=== PATIENT | male | born 1930 | race Caucasian/White ===

== ENCOUNTER 2016-06-11 16:15 | Emergency (ER) | payer OTHER, MEDICARE ==
[~2016-06-11] VITALS: Ht 190.5 cm; Wt 108.9 kg
[~2016-06-11 16:15] MED LIST: <VITAMIN> A + D1 APP TOP; ASPIR 8181 MG PO; GLUCOPHAGE XR500 MG PO; HYDRODIURIL 112.5 M1 PO; LISINOPRIL10 MG PO; METOPROLOL SUCC50 M1 PO; NOVOLOG FLEX100 U/ML SC; PRINIVIL10 MG PO; Robitussin PO; SIMVASTATIN10 MG PO; Theragran Vitamins PO; VITAMIN C250 M1 PO; XARELTO10 MG PO; ZINC SULFATE 2220 MG PO
--- NOTE | 2016-06-11 16:21 | ED GENERAL ADULT ---
History of Present Illness General Chief Complaint: Dyspnea (COPD, CHF, Other) Stated Complaint: RESP DISTRESS Source: patient, old records, EMS, W10 Exam Limitations: clinical condition Vital Signs & Intake/Output Vital Signs & Intake/Output Vital Signs Date Time Temp Pulse Resp B/P Pulse O2 O2 Flow FiO2 Ox Delivery Rate 06/11 1941 98.9 67 24 89/53 91 Nasal 6.0L Cannula 06/11 1920 76 22 90/58 06/11 1809 77 22 90/48 92 Nasal 5.0L Cannula 06/11 1657 79 68/42 06/11 1635 97 Non 100% ReBreather 06/11 1619 99.6 80 22 88/46 99 Non 100% ReBreather ED Intake and Output 06/12 0000 06/11 1200 Intake Total Output Total Balance Patient 240 lb Weight Allergies Coded Allergies: NO KNOWN ALLERGIES (07/26/13) Reconcile Medications Aspirin (Aspirin*) 81 MG TAB.CHEW 1 TAB PO DAILY HEART HEALTH (Reported) Blood Sugar Diagnostic (Accu-Chek Lisa Plus) 1 EACH STRIP 1 STR INH TID DM ( Reported) Carvedilol (Coreg) 6.25 MG TABLET 1 TAB PO BID HEART HEALTH (Reported) Furosemide (Lasix) 40 MG TABLET 1 TAB PO DAILY DIURETIC (Reported) Insulin Aspart (Novolog) 100 UNIT/ML CARTRIDGE 7 UNITS SC QAC DM (Reported) Insulin Detemir (Levemir) 100 UNIT/ML VIAL 14 UNITS SC QHS DM (Reported) Lisinopril 5 MG TABLET 1 TAB PO DAILY HEART HEALTH (Reported) Sennosides/Docusate Sodium (Docusate Sodium-Senna Tablet) 8.6 MG-50 MG TABLET 1 TAB PO QHS BOWEL REG (Reported) [Theragran Vitamins] 1 TAB PO DAILY supplement Triage Nurses Notes Reviewed? yes HPI: Patient was discharged from [facility] yesterday and was discharged to a nursing facility. Today the patient ranges call calderon and stated that he wasn't feeling good. When the nurse went into the room she found him secondary responsive and hypotensive. Upon EMS arrival patient was found to be without radial pulses and a blood pressure of 80/40. Patient is DNR/DNI. Patient was placed on 100% nonrebreather and given IV fluids. Patient does have a history of cardiomyopathy and the last ejection fraction that we have documented from 2013 shows an EF of 20%. Upon arrival to the emergency department patient does have a weak and thready radial pulse but a more pronounced brachial pulse. Patient is awake and answering some questions but not all. Patient knows that he is in the hospital but does not know why he is here. Patient had been admitted to [facility] for acute on chronic renal failure and he was [facility] [place] [facility]. (HERMES RICHTER,KAMI Corea) Past History Medical History Any Pertinent Medical History? see below for history Cardiovascular: CHF, hypertension, IDIOPATHIC CARDIOMYOPATHY Endocrine: diabetes History of MRSA: No History of VRE: No History of CDIFF: No Surgical History Surgical History: non-contributory Psychosocial History Who do you live with Spouse Services at Home None What is your primary language Faroese Tobacco Use: Cognitive Impairment Family History Family History, If Any: FATHER FH: CAD (coronary artery disease) Hx Contributory? No (HERMES RICHTER,KAMI Corea) Review of Systems Review of Systems Constitutional: Reports: see HPI. (HERMES RICHTER,KAMI Corea) Physical Exam Physical Exam General Appearance: awake, lethargic, severe distress Head: atraumatic, normal appearance Eyes: Bilateral: PERRL, EOMI. Ears, Nose, Throat: normal pharynx, normal ENT inspection Neck: supple, JVD Respiratory: decreased breath sounds, respiratory distress Cardiovascular: regular rate/rhythm Peripheral Pulses: 1+ brachial (R), 1+ brachial (L), 0 radial (R), 0 radial (L) Gastrointestinal: normal bowel sounds, soft, non-tender, no organomegaly Back: normal inspection, normal range of motion Extremities: normal inspection, normal capillary refill, normal range of motion, pedal edema Neurologic/Psych: awake, disoriented x 3 Skin: mottled, pallor, COOL Core Measures ACS in differential dx? No CVA/TIA Diagnosis: No Severe Sepsis Present: No Septic Shock Present: No (HERMES RICHTER,KAMI Corea) Progress Differential Diagnoses I considered the following diagnoses in my evaluation of the patient: [Shock, AMI, cardiogenic shock, sepsis, pulmonary edema, pneumonia, electrolyte abnormality] Plan of Care: Orders Procedure Date/time Status Code Status 06/11 190 Active ARTERIAL BLOOD GAS (GEN) 06/11 1620 Active Telemetry/Beef Skinner 06/11 1620 Active Molina, Insertion/Removal/Asses 06/12 1619 Active TROPONIN LEVEL 06/12 1619 Complete COMPREHENSIVE METABOLIC PANEL 06/12 1619 Complete CBC WITHOUT DIFFERENTIAL 06/12 1619 Complete EKG 06/12 1619 Active Laboratory Tests 06/11/16 1635: pH 7.41, pCO2 35, pO2 110 H, HCO3 21, ABG O2 Sat (Measured) 97.0, P-50 (Temp Corrected) Y, Carboxyhemoglobin 0.6 L, O2 Concentration % 100, Temperature 99.6 , O2 Delivery Method NRB, Phlebotomy Draw Site RIGHT RADIAL 06/11/16 1624: Anion Gap 13, Estimated GFR 22 L, BUN/Creatinine Ratio 23.2, Glucose 125 H, Calcium 8.4, Total Bilirubin 0.4, AST 38, ALT 33, Alkaline Phosphatase 79, Troponin I 0.48 *H, Total Protein 6.4, Albumin 3.0 L, Globulin 3.4, Albumin/ Globulin Ratio 0.9 L, CBC w Diff NO MAN DIFF REQ, RBC 3.27 L, MCV 93.2, MCH 31.0, RDW 13.9, MPV 8.1, Gran % 78.8 H, Lymphocytes % 7.8 L, Monocytes % 10.3 H, Eosinophils % 2.4, Basophils % 0.7, Absolute Granulocytes 8.6 H, Absolute Lymphocytes 0.9 L, Absolute Monocytes 1.1 H, Absolute Eosinophils 0.3, Absolute Basophils 0.1, PUBS MCHC 33.2 06/11/161619: Urine Color Cancelled, Urine Clarity Cancelled, Urine pH Cancelled, Ur Specific [place] Cancelled, Urine Protein Cancelled, Urine Ketones Cancelled, Urine Nitrite Cancelled, Urine Bilirubin Cancelled, Urine Urobilinogen Cancelled, Ur Leukocyte Esterase Cancelled, Ur Microscopic Cancelled, Urine Hemoglobin Cancelled, Urine Glucose Cancelled Microbiology 06/12 1619 URINE ROUT: Urine Culture - CAN Cancelled: SPECIMEN NEVER RECEIVED. PATIENT DEPARTED [facility] Initial ED EKG: pacemaker rhythm Prior EKG: unchanged Hand-Off Endorsed To: REMIGIO WILLIAM MD Endorsed Time: 1899 Pending: other (RE-EVAL) Comments: Patient is much more awake alert and oriented. Patient remains hypotensive. Then on repeat it was taken off and attempted to titrate down to nasal cannula however the patient immediately to set it down into the low 80s. A nonrebreather was put on once again and the sats came back up. Patient states that he does not want anything else done. Patient states that he would not want pressors and were totally did not want a triple lumen catheter. Patient states that he is uncomfortable every day and all he wants to his be Comfortable. Patient does not want any further treatment. After receiving permission from the patient called his daughter who agree with the patient that the goal here is just keep him comfortable. She is on her way up to see him and then we will stop the IV fluids and transfer him to a nasal cannula with the goal of comfort measures. Patient's daughter Miladys is at the bedside. Discussion was had with the patient and the daughter and they both agreed to comfort measures only. Patient is requesting a little morphine at this time. (HERMES RICHTER,KAMI Corea) Departure Departure Disposition: ACUTE REHAB FACILITY Condition: Stable Clinical Impression Primary Impression: Comfort measures only status Referrals: SALBADOR RICHTER,PRANEETH Corea (PCP/Family) Departure Forms: Customer Survey General Discharge Information (KAMI MIRZA MD) PA/SHIRRER Co-Sign Statement Statement: ED Attending supervision documentation- [] I saw and evaluated the patient. I have also reviewed all the pertinent lab results and diagnostic results. I agree with the findings and the plan of care as documented in the PA's/SHIRRER's documentation. [x] I have reviewed the ED Record and agree with the PA's/SHIRRER's documentation. [] Additions or exceptions (if any) to the PAs/SHIRRER's note and plan are summarized below: [] (NATALIIA RICHTER,REMIGIO Swift) Critical Care Note Critical Care Note Critical Care Time: non-applicable (KAMI MIRZA MD)
[2016-06-11 16:33] LABS: ABSOLUTE BASOPHIL COUNT 0.1 /CUMM (0.0-0.2); ABSOLUTE EOSINOPHIL COUNT 0.3 /CUMM (0.0-0.7); ABSOLUTE GRANULOCYTE CT 8.6 /CUMM (1.4-6.5); ABSOLUTE LYMPH COUNT 0.9 /CUMM (1.2-3.4); ABSOLUTE MONOCYTE COUNT 1.1 /CUMM (0.10-0.60); BASOPHIL % 0.7 % (0.0-2.0); EOSINOPHIL % 2.4 % (0-5); GRANULOCYTE % 78.8 % (42.2-75.2); HEMATOCRIT 30.4 % (42-52); MEAN CORPUSCULAR HGB CONC 33.2 G/DL (33.0-37.0); MEAN CORPUSCULAR VOLUME 93.2 FL (80.0-94.0); MEAN PLATELET VOLUME 8.1 FL (7.4-10.4); PLATELET COUNT 184 /CUMM (130-400); RBC DISTRIBUTION WIDTH 13.9 % (11.5-14.5); RED BLOOD CELL CT 3.27 /CUMM (4.70-6.10); WHITE BLOOD CELL COUNT 10.9 /CUMM (4.8-10.8)
[2016-06-11] MEDS ORDERED: ASPIRIN81 M4 PO (16:45)
[2016-06-11] MEDS ORDERED: COREG6.25 M1 PO (16:45)
[2016-06-11] MEDS ORDERED: DOCUSATE SODIU1 EACH PO (16:46)
[2016-06-11] MEDS ORDERED: LASIX40 M1 PO (16:47)
[2016-06-11] MEDS ORDERED: ACCU-CHEK AVIV1 EAC1 INH (16:47)
[2016-06-11] MEDS ORDERED: LEVEMIR100 UNIT/1 SC (16:48)
[2016-06-11] MEDS ORDERED: LISINOPRIL5 M1 PO (16:48)
[2016-06-11] MEDS ORDERED: NOVOLOG100 UNIT/1 SC (16:49)
--- NOTE | 2016-06-11 16:59 | RADIOLOGY REPORT ---
EXAMINATION: XR PORTABLE CHEST CLINICAL INFORMATION: Chest pain. COMPARISON: Multiple priors, most recent chest radiograph dated 07/26/2013. TECHNIQUE: Portable AP semiupright portable view of the chest was obtained. FINDINGS: Bilateral lower lobe airspace consolidations, which could represent atelectasis versus infiltrates. No pleural effusion or pneumothorax. Enlarged cardiac mediastinal silhouette, unchanged. There has been interval placement of a left chest wall 3-lead pacemaker. IMPRESSION: Bilateral lower lobe atelectasis versus infiltrates. Mild cardiomegaly. Interval placement of a left chest wall 3-lead pacemaker.
[2016-06-11 19:42] VITALS: BP 89/53
== END 2016-06-11 20:45 ==
LOC: ERH 16:15
PROVIDERS: Emergency Medicine
DX: R53.1 Weakness (principal)
CPT/HCPCS: 87086; 93005; 93010; 96374